=== PATIENT | female | born 1990 | race American Indian/Alaskan Native ===

== ENCOUNTER 2021-02-19 00:30 | Outpatient (CLI) | payer MEDICAID ==
[2021-02-19 01:00] VITALS: BP 124/75
== END 2021-02-19 02:25 | disposition home or self-care (01) ==
LOC: TRG 00:30 → APU 00:33 → TRG 02:25
PROVIDERS: ATTEND Obstetrics & Gynecology
DX: O47.00 False labor before 37 completed weeks of gestation, unspecified trimester (principal); Z3A.00 Weeks of gestation of pregnancy not specified
CPT/HCPCS: 59025

== ENCOUNTER 2021-04-18 17:35 | Inpatient (IN) | payer MEDICAID ==
[2021-04-18] MEDS ORDERED: TERBUTALINE 1 MG/1 ML INJ SUB-Q PRN (21:11)
[2021-04-18] MEDS ORDERED: LIDOCAINE (2%) 20 MG/1 ML VIAL 20 ML MDV INFILTRATI ONE (21:11)
[2021-04-18] MEDS ORDERED: ePHEDrine SULFATE 50 MG/1 ML INJ IV PRN (21:11)
[2021-04-18] MEDS ORDERED: MINERAL OIL 30 ML ORAL LIQD PO PRN (21:11)
--- NOTE | 2021-04-18 21:21 | History and Physical Report ---
History of Present Illness Date of examination: 04/18/21 Chief complaint: Admitted for labor augmentation due to oligohydramnios. History of present illness: 30 year old female presented to L&D to rule out labor. US was done which showed oligohydramnios (BEATRIZ 4.8 cm) and BPP 6/8. Patient was admitted for augmentation of labor. Patient received care at [facility] and records are available. LMP 07/15/2020. EDC 04/21/2021. significant for the following: anemia (supplemented with iron), chlamydia (treated and EREN negative), vitamin D deficiency (supplemented with vitamin D). labs are as follows: O+, antibody screen negative, rubella immune, hepatitis B surface antigen negative, HIV negative, RPR nonreactive, varicella immune, HSV 2 negative, pap smear negative, hemoglobin electrophoresis AA, gonorrhea negative, chlamydia positive/negative, gonorrhea negative/negative, trichomonas negative, AFP negative, 1 hour sugar test 116, GBS negative. Past History Past Medical History: other (vitamin D deficiency) Past Surgical History: no surgical history [facility] History: chlamydia (treated and cured during ). denies: abnormal PAP smear, gonorrhea, hepatitis B, hepatitis C, herpes, HIV, syphilis, trichomonas Family/Genetic History: cancer Social history: lives with family, full code. denies: smoking, alcohol abuse, prescription drug abuse, IV drug use - Obstetrical History Expected Date of Delivery: 04/21/21 Actual Gestation: 39 Week(s) 4 Day(s) : 3 Para: 2 Hx # Term Pregnancies: 2 Number of Pregnancies: 0 Spontaneous Abortions: 0 Induced : 0 Number of Living Children: 2 Medications and Allergies Allergies Allergy/AdvReac Type Severity Reaction Status Date / Time No Known Allergies Allergy Unverified 02/19/21 02:12 Review of Systems All systems: negative (contractions) - Vital Signs Vital signs: Vital Signs Pulse Pulse Ox 75 98 04/18/21 18:09 04/18/21 18:09 Temp Pulse Resp BP Pulse Ox 98.6 F 94 H 20 121/66 99 04/18/21 18:11 04/18/21 20:59 04/18/21 18:11 04/18/21 18:11 04/18/21 20:59 - Physical Exam Abdomen: Positive: normal appearance, soft. Negative: distention, tenderness, guarding, rigidity Genitourinary (Female): Positive: normal external genitalia, normal perenium. Negative: perineal/vulvar lesions Vagina: Positive: normal moisture Uterus: Positive: enlarged. Negative: tender Anus/Rectum: Positive: normal perianal skin Extremities: Positive: normal. Negative: tenderness, edema - Obstetrical FHR: category 1 Uterine Contraction Monitor Mode: External Cervical Dilatation: 3 Cervical Effacement Percentage: 70 station: -2 Uterine Contraction Pattern: Irregular Uterine Contraction Intensity: Mild Results All other labs normal. Assessment and Plan A: Pregnacy at 39 weeks, 4 days gestation. Early labor. Oligohydramnios (BEATRIZ 4.8 cm). BPP 6/8. P: Admit. Continuous EFM. Pitocin augmentationt of labor. Discussed plan of care with patient and patient is in agreement with POC.
--- NOTE | 2021-04-18 21:44 | Ultrasound Report ---
ULTRASOUND BIOPHYSICAL PROFILE INDICATION: BEATRIZ. COMPARISON: None available. FINDINGS: breathing movement = 2 Gross body movement = 2 tone = 2 Qualitative amniotic fluid volume = 0 Total biophysical score = 8/8 Amniotic fluid index is 4.8 cm. Presentation is Cephalic. heart rate is 135 beats per minute. IMPRESSION: biophysical profile = 04/22 Amniotic fluid index is abnormally decreased at 4.8 cm. Signer Name: Barry Emmanuel MD Signed: 04/18/2021 9:39 PM Workstation Name: [id number]
[2021-04-18] MEDS ORDERED: OXYTOCIN DRIP 30 UNITS/500 ML BAG IV SCH (22:00)
[2021-04-18 22:01] LABS: Hemoglobin 10.5 gm/dl (10.1-14.3); Mean Corpuscular HGB Conc 34 % (30-34); Mean Corpuscular Volume 80 fl (79-97); Platelet Count 139 K/mm3 (140-440); Red Blood Count 3.85 M/mm3 (3.65-5.03); Red Cell Distribution Width 16.6 % (13.2-15.2)
[2021-04-18] MEDS: LACTATED RINGERS 1,000 ML IV SCH (23:25)
[2021-04-18] MEDS: OXYTOCIN DRIP 30 UNITS/500 ML BAG IV SCH (23:25)
[2021-04-19] MEDS: fentaNYL 100 MCG/2 ML INJ IV PRN ×2 (03:33→07:12)
--- NOTE | 2021-04-19 06:29 | Event Note ---
Date: 04/19/21 SVE 1. Category 1 FHR tracing.
[2021-04-19] MEDS: LACTATED RINGERS 1,000 ML IV SCH (06:37)
--- NOTE | 2021-04-19 07:54 | Event Note ---
Date: 04/19/21 Care of patient turned over to Dr. Bill at 08:00 today.
[2021-04-19] MEDS ORDERED: OXYTOCIN 10 UNIT/1 ML INJ ONE (08:48)
[2021-04-19] MEDS ORDERED: PROMETHAZINE 25 MG RECT SUPP PR PRN (08:52)
[2021-04-19] MEDS ORDERED: PROMETHAZINE 25 MG TAB PO PRN (08:52)
[2021-04-19] MEDS ORDERED: MAGNESIUM HYDROXIDE (MOM) ORAL LIQD UDC PO PRN (08:52)
[2021-04-19] MEDS ORDERED: diphenhydrAMINE 25 MG CAP PO PRN (08:52)
[2021-04-19] MEDS ORDERED: ACETAMINOPHEN 325 MG TAB PO PRN (08:52)
[2021-04-19] MEDS ORDERED: WITCH HAZEL/ GLYCERIN PAD TP PRN (08:52)
[2021-04-19] MEDS ORDERED: ONDANSETRON 4 MG/2 ML INJ IV PRN (08:52)
[2021-04-19] MEDS ORDERED: LANOLIN/ZINC/DIMETHICONE (LANSINOH) 7 GM TP PRN (08:52)
--- NOTE | 2021-04-19 08:58 | Procedure Note ---
OB Delivery Note - Delivery Date of Delivery: 04/19/21 Surgeon: JUAN DANIEL ACEVEDO Estimated blood loss: 500cc - Vaginal Delivery position: OA Delivery induction: none Delivery augmentation: rupture of membranes, pitocin Delivery monitor: external FHT, external uterine Route of delivery: Delivery placenta: spontaneous Delivery cord: 3 umbilical vessels Episiotomy: none Delivery laceration: 1st degree (Patient declined repair: no active bleeding) Anesthesia: none Delivery comments: Patient pushed to deliver a viable male over an intact perineum with weight 3484gms and 8/9. Position BARRY, no nuchal cord. Spontaneous cry at delivery. Delivery of the anterior shoulder atraumatic, remainder of delivery uncomplicated. Cord clamped cut and baby handed to waiting LEANN team. Cord blood obtained. Spontaneous delivery of an intact placenta with three-vessel cord. Inspection of the perineum cervix and vagina revealed a first-degree midline perineal laceration, patient declined repair. No active bleeding. Firm fundus, EBL 400ml after oxytocin 10mu imx1 dose given. All sponge needle and instrument counts correct x2. Mom and baby stable to . no complications Portia Acevedo MD
[2021-04-19] MEDS: IBUPROFEN 600 MG TAB PO SCH ×2 (10:41→21:55)
[2021-04-19] MEDS: OXYTOCIN DRIP 30 UNITS/500 ML BAG IV SCH (10:42)
[2021-04-19] MEDS: HYDROcodone/ACETAMINOPHEN 5-325 MG TAB PO PRN ×2 (12:45→20:55)
[2021-04-19] MEDS: oxyCODONE /ACETAMINOPHEN 5-325MG TAB PO PRN (18:56)
[2021-04-19 20:57] LABS: Hematocrit 27.7 % (30.3-42.9)
[2021-04-19 21:02] LABS: Hemoglobin 9.3 gm/dl (10.1-14.3)
[2021-04-20] MEDS: HYDROcodone/ACETAMINOPHEN 5-325 MG TAB PO PRN ×2 (02:38→16:23)
[2021-04-20] MEDS: IBUPROFEN 600 MG TAB PO SCH ×4 (03:20→22:57)
[2021-04-20] MEDS: oxyCODONE /ACETAMINOPHEN 5-325MG TAB PO PRN ×2 (06:15→19:15)
--- NOTE | 2021-04-20 09:18 | Progress Note ---
Assessment and Plan A: day 1 S/P . Anemia. P: Supplement with iron. Anticipate discharge home tomorrow if patient continues to do well. Subjective - Subjective Date of service: 04/20/21 Principal diagnosis: day 1 S/P Interval history: Doing well. Patient reports: appetite normal, voiding normally, pain well controlled, flatus, ambulating normally, no dizzy ambulation, no nauseated [place]: doing well Objective - Vital Signs Latest vital signs: Vital Signs Temp Pulse Resp BP BP Pulse Ox 04/20/21 07:50 97.5 F L 58 L 18 115/53 99 04/20/21 00:42 97.7 F 61 20 129/63 98 04/19/21 20:55 20 04/19/21 20:45 97.9 F 71 20 110/61 98 04/19/21 19:56 18 04/19/21 16:30 97.8 F 53 L 18 106/45 04/19/21 11:25 97.8 F 60 18 113/56 100 04/19/21 10:38 52 L 100 04/19/21 10:33 49 L 100 04/19/21 10:28 57 L 90 04/19/21 10:23 55 L 96 04/19/21 10:18 60 100 04/19/21 10:13 59 L 97 04/19/21 10:08 63 100 04/19/21 10:03 68 98 04/19/21 09:58 71 100 04/19/21 09:53 60 100 04/19/21 09:48 60 99 04/19/21 09:43 52 L 100 04/19/21 09:38 57 L 113/62 100 04/19/21 09:33 64 99 04/19/21 09:28 53 L 100 04/19/21 09:23 50 L 138/74 100 04/19/21 09:20 56 L 77 L 04/19/21 09:18 51 L 100 Intake and Output 04/19/21 04/20/21 04/20/21 23:59 07:59 15:59 Intake Total 240 Output Total 400 Balance -160 Intake: Oral 240 Output: Urine 400 Void 400 Other: Total, Intake Amount 120 Total, Output Amount 400 # Voids Void 1 - Exam Cardiovascular: Present: Regular rate Lungs: Present: Clear to auscultation Abdomen: Present: normal appearance, soft. Absent: distention, tenderness, guarding, rigidity Uterus: Present: normal, firm, fundal height below umbilicus. Absent: bogginess, tenderness Extremities: Absent: tenderness, edema - Labs Labs: Abnormal lab results 04/19/21 Range/Units 20:40 Hgb 9.3 L (10.1-14.3) gm/dl Hct 27.7 L (30.3-42.9) %
[2021-04-20] MEDS: FERROUS SULFATE 325 MG TAB PO SCH ×2 (10:40→22:55)
--- NOTE | 2021-04-21 06:57 | Progress Note ---
Assessment and Plan A: day 1 S/P . Anemia. P: Discharge patient home today. Discussed with patient discharge instructions and warning signs. Advised patient to continue taking vitamin and iron supplements at home. Advised patient to avoid intercourse, lifting, housework. Advised patient to follow up at [facility] office in 6 weeks. Patient voiced understanding of all instructions. Subjective - Subjective Date of service: 04/21/21 Principal diagnosis: day 2 S/P Interval history: Doing well. Patient desires discharge home today. Patient reports: appetite normal, voiding normally, pain well controlled, flatus, ambulating normally, no dizzy ambulation, no nauseated : doing well Objective - Vital Signs Latest vital signs: Vital Signs Temp Pulse Resp BP Pulse Ox 04/21/21 00:35 98.2 F 57 L 20 126/69 100 04/20/21 22:57 14 04/20/21 16:53 97.4 F L 65 18 118/58 97 04/20/21 12:07 97.8 F 63 18 113/50 100 04/20/21 07:50 97.5 F L 58 L 18 115/53 99 Intake and Output 04/20/21 04/20/21 04/21/21 15:59 23:59 07:59 Intake Total 240 Balance 240 Intake: Oral 240 Other: Total, Intake Amount 240 # Voids Void 1 1 - Exam Cardiovascular: Present: Regular rate Lungs: Present: Clear to auscultation Abdomen: Present: normal appearance, soft. Absent: distention, tenderness, guarding, rigidity Uterus: Present: normal, firm, fundal height below umbilicus. Absent: bogginess, tenderness Extremities: Absent: tenderness, edema
--- NOTE | 2021-04-21 07:01 | Discharge Summary ---
Providers - Providers Date of Admission: 04/18/21 21:22 Date of discharge: 04/21/21 Attending physician: JUAN DANIEL ACEVEDO MD Primary care physician: JUAN DANIEL ACEVEDO MD Hospitalization Reason for admission: induction of labor Delivery: Episiotomy: none Laceration: none Other procedures: none complications: none Discharge diagnosis: IUP at term delivered [place] baby: male Pertinent studies: Labs Hospital course: Stable hospital course. Condition at discharge: Good Disposition: DC-01 TO HOME OR SELFCARE - Discharge Diagnoses (1) Term delivered Status: Acute (2) Anemia Status: Acute Plan - Provider Discharge Summary Activity: routine, no sex for 6 weeks, no heavy lifting 4 weeks, no strenuous exercise Diet: routine Instructions: routine Additional instructions: Continue taking your vitamin and iron supplements at home. Follow up at [facility] in 6 weeks. Call to obtain appointment. Call your doctor immediately for: * Fever > 100.5 * Heavy vaginal bleeding ( >1 pad per hour) * Severe persistent headache * Shortness of breath * Reddened, hot, painful area to leg or breast - Follow up plan Follow up: JUAN DANIEL ACEVEDO MD [Primary Care Provider] - 6 Weeks
[2021-04-21] MEDS: HYDROcodone/ACETAMINOPHEN 5-325 MG TAB PO PRN (08:02)
[2021-04-21] MEDS: IBUPROFEN 600 MG TAB PO SCH (10:17)
[2021-04-21] MEDS: FERROUS SULFATE 325 MG TAB PO SCH (10:17)
[2021-04-21 12:35] VITALS: BP 125/57
== END 2021-04-21 13:30 | disposition home or self-care (01) | DRG 775 ==
LOC: TRG 17:35 → APU 17:37 → TRG 21:22 → LD 21:22 → OB 04-19 11:04
PROVIDERS: ADMIT Obstetrics & Gynecology; ATTEND Obstetrics & Gynecology
PROC: 10E0XZZ Delivery of Products of Conception, External Approach (ICD-10-PCS; principal; 2021-04-19)
DX: O41.03X0 Oligohydramnios, third trimester, not applicable or unspecified (principal); O99.02 Anemia complicating childbirth; Z20.822 Contact with and (suspected) exposure to COVID-19; O70.0 First degree perineal laceration during delivery; Z80.9 Family history of malignant neoplasm, unspecified; Z3A.39 39 weeks gestation of pregnancy; Z37.0 Single live birth; D64.9 Anemia, unspecified
CPT/HCPCS: 36415; 59025; 76815; 76819; 84112; 85014; 85018; 85027; 86592; 86850; 86900; 86901; 99211; G0378; G0463; J2590; J3010; J7120; U0003